=== PATIENT | female | born 1990 | race Caucasian/White ===

== ENCOUNTER 2024-03-03 20:44 | Emergency (ER) | payer MEDICAID ==
[~2024-03-03] VITALS: Ht 160 cm; Wt 68.2 kg
[2024-03-03 21:30] LABS: EOSINOPHILS # (AUTO) 0.1 X10'3 (0-0.9); HEMOGLOBIN 11.7 g/dl (12.0-16.0); MONOCYTES # (AUTO) 1.2 X10'3 (0-0.9); PLATELET COUNT 302 X10'3 (140-440); WHITE BLOOD COUNT 12.1 X10'3 (4.5-11.0)
[2024-03-03 21:32] LABS: BASOPHILS % (AUTO) 0.2 % (0-1); EOSINOPHILS % (AUTO) 0.7 % (0-6); HEMATOCRIT 35.5 % (35.0-45.0); LYMPHOCYTES # (AUTO) 2.1 X10'3 (1.1-4.8); LYMPHOCYTES % (AUTO) 17.2 % (21-51); MEAN CORPUSCULAR HEMOGLOBIN 28.7 PG (27.0-31.0); MEAN CORPUSCULAR VOLUME 86.9 FL (78-98); MEAN PLATELET VOLUME 8.7 FL (7.4-10.4); MONOCYTES % (AUTO) 10.3 % (2-12); NEUTROPHILS # (AUTO) 8.7 X10'3 (1.8-7.7); NEUTROPHILS % (AUTO) 71.6 % (42-75); RED BLOOD COUNT 4.08 X10'6 (4.20-5.60); RED CELL DISTRIBUTION WIDTH 14.4 % (11.5-14.5)
[2024-03-03 21:39] LABS: ANION GAP 9 (8-16); BLOOD UREA NITROGEN 16 MG/DL (7-18); BUN/CREATININE RATIO 16.7 (10.0-20.0); CHLORIDE 100 MMOL/L (99-107); CREATININE 0.96 MG/DL (0.40-0.90); GLUCOSE 84 MG/DL (70-104); SODIUM 137 MMOL/L (135-145); TOTAL CARBON DIOXIDE 27.8 MMOL/L (24-32)
[2024-03-03 21:40] LABS: ALBUMIN 3.2 G/DL (3.4-5.0); CALCIUM 9.2 MG/DL (8.5-10.1); POTASSIUM 4.4 MMOL/L (3.5-5.1); eCRCL 70 ML/MIN; eGFR 67 ML/MIN
[2024-03-03 23:02] LABS: BILIRUBIN,URINE NEGATIVE (Neg); CLARITY,URINE SLIGHTLY CLOUDY (Clear); COLOR,URINE YELLOW (Yellow); GLUCOSE, URINE NEGATIVE (Neg); KETONES,URINE TRACE mg/dl (Neg); LEUKOCYTE ESTERASE ,URINE SMALL (Neg); NITRITES, URINE POSITIVE (Neg); OCCULT BLOOD,URINE NEGATIVE (Neg); PROTEIN,URINE TRACE mg/dl (Neg); UROBILINOGEN,URINE 0.2 E.U/dL (0.2-1.0)
[2024-03-03 23:10] LABS: UA COLLECTION TYPE CLN CATCH MIDSTREAM
[2024-03-03 23:25] LABS: BACTERIA,URINE 3+ /HPF (Neg); MUCUS STRANDS FEW /LPF (Neg); SQUAMOUS EPITHELIAL CELL,UR MODERATE /LPF (FEW); TRANSITIONAL EPI CELLS,URINE FEW /HPF; WBC,URINE 30-50 /HPF (0-4)
[2024-03-03 23:26] LABS: RENAL CELLS, URINE FEW /HPF
[2024-03-03] MEDS ORDERED: DOXY-1 PO (23:36)
[2024-03-03] MEDS ORDERED: RIFA300C65 PO (23:36)
[2024-03-04] MEDS: DOXYCYCLINE 100MG CAPSULE PO STA (00:15)
[2024-03-04] MEDS: vancomycin/NS 1 GM ADD-VANTAGE 250 ML IV ONE (00:15)
[2024-03-04] MEDS: rifampin 300mg capsule PO STA (00:31)
[2024-03-04 02:53] VITALS: BP 120/60; PULSE 89; RESP 20; TEMP 98.5; O2SAT 98
== END 2024-03-04 02:55 | disposition home or self-care (01) ==
LOC: ER 20:44
DX: L03.115 Cellulitis of right lower limb (principal); L03.116 Cellulitis of left lower limb; L97.819 Non-pressure chronic ulcer of other part of right lower leg with unspecified severity; Z88.2 Allergy status to sulfonamides; Z79.2 Long term (current) use of antibiotics; Z79.899 Other long term (current) drug therapy
CPT/HCPCS: 36415; 71045; 80048; 81001; 83605; 84145; 85025; 87040; 87077; 87088; 87186; 96365; 96366; 99285; A6223; J3370; J7030; A6446; A6449